=== PATIENT | male | born 1985 | race Caucasian/White ===

== ENCOUNTER 2016-11-12 04:51 | Inpatient (IN) | payer OTHER ==
[~2016-11-12] VITALS: Ht 162.6 cm; Wt 68.0 kg
[2016-11-12] MEDS ORDERED: SEROQUEL100 MG PO (10:36)
[2016-11-13 06:29] LABS: HEMOGLOBIN 17.4 gm/dl (14.0-17.5); RED BLOOD COUNT 5.62 M/UL (4.20-5.50); WHITE BLOOD COUNT 5.8 K/UL (4.5-11.0)
[2016-11-13 06:39] LABS: BUN/CREATININE RATIO 14 (0-10)
[2016-11-14 05:25] LABS: HEMOGLOBIN 15.1 gm/dl (14.0-17.5); RED BLOOD COUNT 4.89 M/UL (4.20-5.50)
[2016-11-14 05:38] LABS: BUN/CREATININE RATIO 15 (0-10)
[2016-11-15 06:22] LABS: BUN/CREATININE RATIO 18 (0-10)
[2016-11-15] MEDS ORDERED: BACTRIM DS TAB1 EACH PO (17:22)
== END 2016-11-15 19:00 | disposition home or self-care (01) | DRG 580 ==
LOC: M/S 07:18
PROVIDERS: Physician Assistant; Surgery; ADMIT Hospitalist
PROC: 0W960ZZ Drainage of Neck, Open Approach (ICD-10-PCS; principal; 2016-11-13 12:15)
DX: L03.221 Cellulitis of neck (principal); B17.10 Acute hepatitis C without hepatic coma; L02.11 Cutaneous abscess of neck; B95.62 Methicillin resistant Staphylococcus aureus infection as the cause of diseases classified elsewhere; Z72.89 Other problems related to lifestyle; Z72.0 Tobacco use
CPT/HCPCS: 36415; 76705; 80048; 80053; 80074; 80202; 83735; 85025; 85027; 87070; 87077; 87186; 87205; 87390; J1100; J2250; J2270; J2405; J2710; J3010; J3370; J7030; J7070; J7120